=== PATIENT | female | born 1965 ===

== ENCOUNTER 2017-07-16 05:41 | Day surgery (SDC) | payer OTHER ==
[2017-07-07 11:01] VITALS: BMI 21.8
[2017-07-16] MEDS ORDERED: Lidocaine 1% MPF (30 ml) Inj INFIL ONE (07:32)
[2017-07-16] MEDS ORDERED: ceFAZolin 1 gm in NS 1 GM/100 ML BAG IVPB ONE (07:49)
[2017-07-16] MEDS ORDERED: Propofol 10 mg/ml Inj (20 ML) ONE ×2 (07:54→08:52)
[2017-07-16] MEDS ORDERED: Midazolam 2 MG/2 ML VIAL ONE (07:54)
[2017-07-16] MEDS: Bupivacaine HCl 0.5% PF (30 ml) Inj ONE ×2 (08:00→09:25)
[2017-07-16] MEDS ORDERED: Bacitracin Ointment 30 GM TUBE ONE (09:15)
--- NOTE | 2017-07-16 09:41 | PCM.SURG1 ---
Surgeon's Initial Post Op Note - Surgeon's Notes Surgeon: Dr. Germán Hicks DPM Check Services Clerk: Dr. Dank Ortez, PGY-2 Type of Anesthesia: IV Sedation, Local Anesthesia Administered By: Dr. Alicdes MD Pre-Operative Diagnosis: Right foot hallux rigidus Operative Findings: See dictation. Materials: Synthes 2.0 x 16mm fully threaded screw, Candi Biomet Absorbable Pin. Injectible: 1ml dexamethasone 4mg /mL, 10mL of 0.5% marcaine plain Post-Operative Diagnosis: Right foot hallux rigidus Operation Performed: Right foot decompressional osteotomy with screw fixation. Specimen/Specimens Removed: 1) Right foot hallux bone. 2) Right foot 1st metatarsal bone Estimated Blood Loss: EBL {In ML}: 2 Blood Products Given: N/A Drains Used: No Drains Post-Op Condition: Good Date of Surgery/Procedure: 07/16/17 Time of Surgery/Procedure: 09:30
[2017-07-16] MEDS ORDERED: Oxycodone/Acetaminophen 5/325 mg Tab PO PRN (09:44)
[2017-07-16] MEDS ORDERED: Lactated Ringer's 1,000 ML IV ONE (10:08)
--- NOTE | 2017-07-16 10:40 | RAD ---
PROCEDURE: Right Foot Radiographs. HISTORY: s/p right foot surgery COMPARISON: None. FINDINGS: BONES: Status post osteotomy in the distal 1st metatarsal. A single metallic screw is seen at the osteotomy site. Bone alignment and mineralization are normal. No acute fracture or bone destruction. JOINTS: Normal. SOFT TISSUES: There is periarticular soft tissue swelling and soft tissue emphysema at the 1st MTP joint in keeping with recent surgery. OTHER FINDINGS: None. IMPRESSION: Status post osteotomy in the distal 1st metatarsal and postsurgical changes in the periarticular soft tissues.
[2017-07-16 12:24] VITALS: BP 129/74; PULSE 77; RESP 18; TEMP 98; O2SAT 98
--- NOTE | 2017-07-21 06:48 | OP ---
PROCEDURE DATE: 07/16/2017 PRIMARY SURGEON: Germán Hicks DPM FLOOR COVERING PRINTER ASSISTANT: Dank Ortez, PGY-2 ANESTHESIOLOGIST: Dr. Mcgrath. ANESTHESIA TYPE: MAC IV sedation with local. PREOPERATIVE DIAGNOSIS: Right foot hallux rigidus. POSTOPERATIVE DIAGNOSIS: Right foot hallux rigidus. PROCEDURE PERFORMED: Right foot first metatarsal decompression osteotomy with fixation. SPECIMEN: 1. Right hallux bone. 2. Right first metatarsal bone. INDICATIONS: The patient is a 51-year-old female with the above stated diagnosis. The patient has exhausted all conservative treatment options to this time and has now need of surgical intervention. The patient has signed surgical consent after careful explanation of risks, benefits, and complications and potential alternatives for the proposed surgical procedure. No guarantees were either given nor implied. All patient's questions were answered to her satisfaction.. PREPARATION: The patient's n.p.o. status was confirmed prior to brining the patient to the operating room. The patient was brought into the operating room and placed on the operative room table in a supine position. A well-padded pneumatic tourniquet was applied in the supramalleolar position to the patient's right lower extremity set at 250 mmHg to be inflated once the procedure began. Once IV sedation was confirmed and achieved the patient received a total of 19 mL of 1:1 mixture of 0.5% Marcaine plain to 1% lidocaine plain in a local block type fashion to the right foot. Once local anesthetic was confirmed to have been achieved, the patient's right foot was then prepped and draped in the usual sterile manner. Foot was exsanguinated. Tourniquet was inflated and the procedure began. PROCEDURES: 1. Right foot first metatarsal decompression osteotomy with internal fixation. Attention was then directed to the dorsal medial aspect of the first metatarsophalangeal joint of the right foot where approximately 6 cm linear longitudinal incision was made using a #15 blade, medial and parallel to the tendon of the extensor hallucis longus involving the this incision was then deepened through the subcutaneous tissue layers. Using sharp dissection care was taken to identify and retract, avoid identifying retract all vital neurovascular structures. All bleeders were cauterized and ligated as needed. At this time a longitudinal capsulotomy was performed along the incisions across the dorsal medial aspect of the first metatarsophalangeal joint. The capsular structures were then carefully dissected free of the osteal detachments and was dissected medially and laterally thus fully exposing the head and base of the first metatarsal and proximal hallux respectively. At the time it was noted that there was loose bone fragment in the dorsal aspect of the first metatarsal phalangeal joint. This fragment was excised and passed from the operative field. Upon evaluation of the first metatarsophalangeal joint it was noted that hypertrophic bony overgrowth and exostosis existed along the and bony margins primary focus along the dorsal, medial and lateral aspect of the joint. Limited joint range of motion established approximately 15 degrees of sagittal joint range of motion with noted bony blocking due to dorsal exostosis was appreciated. Evaluation of first metatarsal head, there was noted to be ____ cartilage and the dorsal lateral quadrant of the head. At this time an oscillating bone saw was introduced and dorsal, medial, and lateral bony prominences were resected and passed from the operative field. At this time, mild improvement to dorsiflexion range of motion of the joint was appreciated, but still limited. Next, utilizing an oscillating bone saw a Z-type osteotomy was performed of the first metatarsophalangeal joint with the plantar arm oriented obliquely sparing the sesamoids and the dorsal arm created perpendicular to the long access of the bone. A second dorsal arm osteotomy cut was performed in the same orientation as the first 3 cm proximally. Osteotomy cuts were completed, 3 mm bone wedge was excised two parallel bone cuts and passed from the operative montez. At this time adequate decompression of the joint was achieved once distal capital fragment of the metatarsal head was retrograded upon metatarsal shaft. At this time, temporary K wire fixation was utilized and adequate position was achieved. At this time, attempt was made to introduce a Biomet OrthoSorb wire across the osteotomy site. Osteotomy K-wire was then placed and strenuous was then resected using wire mesh gate assembler passed from the operative field. Range of motion was assessed at this time but fixation was found to be insufficient. Distal aspect of the Biomet absorbable pin could not be retrieved. At the time intraoperative fixation was made to secure osteotomy with internal screw fixation. A Synthes 2 x 16 mm screw was oriented technique across the osteotomy site. Correction was found to be adequate and stable. At this time, surgical site was then flushed with copious amounts of sterile saline. Range of motion was found to be greatly improved with the patient having approximately 65 degrees of dorsiflexion range of motion. At this time using K-wire coach driver denuded aspect of the dorsal lateral quadrant of denuded cartilage was then drove down to the level of the subchondral bone plate to promote cartilaginous ingrowth. No violation or instability of metatarsal head of this area was noted upon completion of the subchondral joint. Surgical site was then flushed with copious amounts of sterile saline. Capsular structures were then reapproximate using 3-0 Vicryl. Subcutaneous tissue layers were reapproximated using 4-0 Vicryl. Skin was re-approximated using 4-0 Prolene in simple suture type fashion. Surgical site was then dressed with Betadine soaked 4 x 4 gauze, 4 x 4 Kerlix Sue and LUIS E. POSTOPERATIVE CONDITION: The surgical site was then infiltrated with an additional 10 mL of 0.5% Marcaine plain and 1 mL of dexamethasone 4 mg/mL. Tourniquet was then released. The patient was escorted to the recovery room with vital signs stable and neurovascular status intact to the right lower extremity, the patient had no complaints or complications. The patient will follow up with Dr. Hicks in his office on an outpatient basis. Dank Ortez DPM Germán Hicks DPM
== END 2017-07-16 11:40 | disposition home or self-care (01) ==
LOC: C.SDS 05:41
PROVIDERS: ATTEND Podiatrist Foot & Ankle Surgery
DX: M20.11 Hallux valgus (acquired), right foot (principal); M21.611 Bunion of right foot
CPT/HCPCS: 28296; 73620; 88304; C1713; J0690; J1100; J2250; J2704; J3010; J7120